=== PATIENT | female | born 1955 ===

== ENCOUNTER 2025-04-25 07:00 | Day surgery (SDC) | payer OTHER ==
[2025-04-18 13:23] VITALS: BP 121/81
[~2025-04-25] VITALS: Ht 152.4 cm; Wt 60.3 kg
[~2025-04-25 07:00] MED LIST: FOSAMAX70 MG PO; ZETIA10 MG PO
[2025-04-25] MEDS ORDERED: CEFTRIAXONE SODIUM 2,000 MG VIAL ONE (08:27)
[2025-04-25] MEDS ORDERED: METRONIDAZOLE/SODIUM CHLORIDE 500 MG/100 ML PIGGYBACK IV ONE (08:27)
[2025-04-25] MEDS ORDERED: POVIDONE-IODINE 118 ML BOTT TOP ONE (10:24)
[2025-04-25] MEDS ORDERED: HEMOSTATIC MATRIX 1 KIT KIT TOP ONE (10:24)
[2025-04-25] MEDS ORDERED: DIBUCAINE 30 GM TUBE ONE (10:24)
[2025-04-25] MEDS ORDERED: PERCOCET 5-3251 EACH PO (11:01)
[2025-04-25] MEDS ORDERED: RECTICARE30 GM TOP (11:01)
== END 2025-04-25 14:45 | disposition home or self-care (01) ==
LOC: CIR.AMB 07:00
PROVIDERS: ATTEND Surgery
DX: K64.2 Third degree hemorrhoids (principal); K64.4 Residual hemorrhoidal skin tags